=== PATIENT | female | born 1955 | race Caucasian/White ===

== ENCOUNTER 2016-07-03 08:17 | Inpatient (IN) | payer MEDICARE, MEDICAID ==
[2016-07-03] MEDS ORDERED: LORazepam 2 MG/ML DISP.SYRIN ONE ×2 (08:25→09:28)
--- OUTSIDE RECORDS SUMMARY | 2016-07-03 08:26 | XMS REPORT | Continuity of Care Document ---
:1955 Author Organization [facility] ([facility]) Address [address] [place] [address] Phone [phone] Care Team Providers Name Role Phone Will, Aditi Primary Care Provider [phone] Source Comments This disclosure is being made pursuant to the Care Everywhere program, applicable federal and state laws, and may not contain all informaitonavailable regarding this patient.[facility] ([facility]) Active Allergies and Adverse Reactions Allergen Noted Date Severity Reactions Comments Amitriptyline 09/06/2013 OTHER Pt states makes her "really goofy, like I'm on speed" Amoxicillin 09/06/2013 Upper Airway Includes any Edema,Anaphylactic antibiotic in the Shock penicillin family Blue Dye 09/06/2013 Nausea & Pt states she "passed Vomiting,Dizziness,OT out" HER Clonazepam 09/06/2013 OTHER Sleeps for approx. 48 hours straight Coffee (Coffea 06/20/2016 Urticaria (Hives) Arabica) Cotrim Double-Strength 09/06/2013 Rash Pt can only take sulfa for antibiotic and is treated prophylactic with antihistamine Duloxetine 09/06/2013 Urticaria (Hives) Exenatide 06/14/2016 OTHER Gabapentin 09/06/2013 OTHER Was affecting kidneys and liver Ibuprofen 09/06/2013 Urticaria Swollen tongue (Hives),OTHER Meperidine 06/14/2016 Urticaria (Hives) Metaxalone 09/06/2013 Nausea & Vomiting,Fever Metformin 09/06/2013 OTHER Was affecting kidneys and liver Milnacipran 09/06/2013 Urticaria (Hives) Morphine 09/06/2013 OTHER Pt states makes her "loopy" Naproxen 09/06/2013 Urticaria (Hives) Other Agent 09/18/2014 Angioedema Gadavist Penicillin 06/14/2016 Anaphylactic Shock Pioglitazone 09/06/2013 Urticaria Stomach cramps (Hives),OTHER Pramipexole 06/14/2016 Urticaria (Hives) Pregabalin 09/06/2013 Upper Airway Edema,Urticaria (Hives) Rosiglitazone 06/14/2016 Urticaria (Hives) Sulindac 06/14/2016 Urticaria (Hives) Valdecoxib 06/14/2016 Urticaria (Hives) Current Medications Prescription Sig. Disp. Refills Start End Status Date Date GENTAK 0.3 % Instill 1 Drop 08/16/19 Active ophthalmic solution onto both eyes 4 14 times daily as needed nitroglycerin 0.[address] 0.4 mg Active SL tablet under the tongue every 5 minutes as needed. melatonin 3 mg tablet Take 1 Tab (3 mg 30 Tab 09/27/19 Active total) by mouth 15 at bedtime HYDROcodone-acetaminop Take 1 tablet by 30 tablet 0 11/08/19 Active hen 10-325 mg per mouth every 8 15 tablet hours as needed insulin regular Inject 60 Units 15 mL 06/15/19 Active (HumuLIN R subcutaneously 3 17 CONCENTRATED) 500 times daily unit/mL (3 mL) before meals. injection pen oxyCODONE 5 mg Take 1-2 tablets 60 tablet 0 06/23/19 Active immediate release (5-10 mg total) 17 tablet by mouth every 4 hours as needed for Pain. docusate 100 mg Take 1 capsule 60 capsule 0 06/23/19 Active capsule (100 mg total) by 17 mouth 2 times daily. levETIRAcetam 500 mg Take 2 tablets 60 tablet 06/23/19 Active tablet (1,000 mg total) 17 by mouth 2 times daily. FLUOXETINE 40 mg Take 40 mg by 07/16/19 Discontinued capsule mouth 2 times 14 017 daily levothyroxine 100 mcg Take 100 mcg by Discontinued tablet mouth every 017 morning before breakfast. lisinopril 20 mg Take 0.5 Tabs (10 30 Tab 11 09/27/19 Discontinued tablet mg total) by 15 017 mouth daily levETIRAcetam 500 mg Take 1 Tab (500 30 Tab 09/27/19 Discontinued tablet mg total) by 15 017 mouth 2 times daily atorvastatin 40 mg Take 1 Tab (40 mg 30 Tab 5 09/27/19 Discontinued tablet total) by mouth 15 017 every evening hydrochlorothiazide Take 12.5 mg by Discontinued 12.5 mg tablet mouth daily 017 diphenhydrAMINE 25 mg Take 25-50 mg by Discontinued capsule mouth every 4 017 hours as needed acetaminophen 325 mg Take 650 mg by Discontinued tablet mouth every 4 017 hours as needed insulin glargine Inject 65 Units 10 mL 11 11/08/19 Discontinued (LANTUS) 100 unit/mL subcutaneously at 15 017 injection vial bedtime insulin lispro 64 to 70 units 66 mL 12/18/19 Discontinued (HumaLOG KWIKPEN) 100 premeal 3 times 16 017 unit/mL (3 mL) daily. Take up to injection pen 10 units at bed time for hyperglycemnia. Total daily dose up to 220 units SUPPLY ULTICARE 31 X 8 Inject 5 Doses 11/20/19 Discontinued MM pen needle subcutaneously 16 017 daily. GENTAK 0.3 % (3 mg/g) 06/10/19 Discontinued oint ophthalmic 17 017 ointment insulin aspart Inject Discontinued (NovoLOG FLEXPEN) 100 subcutaneously 3 017 unit/mL (3 mL) times daily injection pen before meals. levETIRAcetam 500 mg Take 1,000 mg by Discontinued tablet mouth 2 times 017 daily. Active Problems Problem Noted Date Acute cystitis 06/18/2016 Overview: Evaluated with ua, treated with cipro Intracranial hemorrhage 06/17/2016 Syncope and collapse 02/25/2015 After care 11/04/2014 Difficult airway for intubation 11/01/2014 Metacarpal bone fracture 10/06/2014 Morbid obesity 09/18/2014 Right-sided intracerebral hemorrhage 09/18/2014 Chronic pain syndrome 09/09/2013 Resolved Problems Problem Noted Date Resolved Date Intracranial hemorrhage on right side following injury 10/30/2014 11/07/2014 Overview: Repeat head CT. Neurosurgery consulted Tenderness over spine 10/30/2014 11/07/2014 Overview: T&L spine cleared radiologically. C-spine tender, placed in [place] j, CT negative for acute fracture. Claustrophobia 10/30/2014 11/07/2014 Head trauma 09/18/2014 11/07/2014 Most Recent Encounters Date Type Specialty Providers Description 06/22/2016 Office Visit Heart and Default, Other Subj: Appointment Vascular Raymond - Defo Scheduled Rod Hilton MD 06/20/2016 Hospital Encounter Heart and Mehul Lan, Chief Comp: Patient Vascular MD Reported Reason For Sigurdsson, Visit MD Isabel 06/18/2016 Hospital Encounter Neurology Mehul Lan, Subj: Appointment MD Scheduled 06/17/2016 Hospital Encounter Neurology Gabriella Dwyer MD Subj: Appointment Scheduled 06/17/2016 - Hospital Encounter General Care Sebastian Segovia, Dx: Syncope and 06/22/2016 Inpatient - Adult MD collapse (Primary Palak Liz, Dx) Rolly Huston MD 06/14/2016 Office Visit Diabetes Services Amy Pedersen MD Dx: Uncontrolled diabetes mellitus type 2 without complications, unspecified usp insulin use status (Primary Dx) Social History Tobacco Use Types Packs/Day Years Used Date Never Smoker Smokeless Tobacco: Never Used Tobacco Cessation:Counseling Given: Yes Comments: Alcohol Use Drinks/Week oz/Week Comments No Last Filed Vital Signs Vital Sign Reading Time Taken Blood Pressure 133/63 06/22/2016 12:15 PM CDT Pulse 100 06/22/2016 12:15 PM CDT Temperature 36.7 C (98.1 F) 06/22/2016 12:15 PM CDT Respiratory Rate 17 06/19/2016 5:36 AM CDT Height 1.518 m (4' 11.75") 06/20/2016 2:34 PM CDT Weight 92.2 kg (203 lb 4.2 oz) 06/20/2016 2:34 PM CDT Body Mass Index 40.01 06/20/2016 2:34 PM CDT Oxygen Saturation 96% 06/22/2016 12:15 PM CDT Plan of Care Date Type Specialty Providers Description 07/06/2016 Wait List Neurology 07/06/2016 Appointment Neurology Efrain Araujo MD Subj: Upcoming Appt [address] [place] [id number] [phone] (Fax) 08/05/2016 Appointment Radiology Subj: Appointment Scheduled 08/05/2016 Appointment Neurosurgery Den Mohan III, MD [address] [place] [address] [phone] (Fax) Subj: Appointment Raymon Huynh MD [address] [place] [address] [phone] (Fax) Scheduled Health Maintenance Due Date Last Done Comments HCV Screening 1955 Hepatitis B Vaccine (1 of 3 - 1955 Primary Series) Tdap Vaccine 1965 DIABETIC: Microalbumin 1972 Td Vaccine 1972 Pneumococcal Vaccine (1 of 1 1973 - PPSV23) Cervical Cancer Screening 1984 Mammogram 1994 Colonoscopy 11/26/2004 Zoster Vaccine 2014 DIABETIC: Cholesterol 09/26/2015 09/25/2014 Diabetic: Hdl 09/26/2015 09/25/2014 Diabetic: Ldl 09/26/2015 09/25/2014 DIABETIC: Triglycerides 09/26/2015 09/25/2014 DIABETIC: Foot Exam 12/18/2015 DIABETIC: Retinal Eye Exam 12/18/2015 [facility] Annual Coding Paraplegia 02/28/2016 Influenza Vaccine: Seasonal 09/27/2016 (Season Ended) DIABETIC: Hemoglobin A1C 12/14/2016 06/14/2016, 12/18/2015, 10/31/2014 [facility] Annual Coding Diabetes 02/27/2017 06/14/2016, Additional history exists without Complication 12/18/2015, 12/18/2015 Results from Last 3 Months PLATELET COUNT (06/22/2016 12:14 PM) Component Value Range Platelet Count 306 150-400 K/MM3 Specimen Whole Blood BLOOD GLUCOSE, BEDSIDE (06/22/2016 11:47 AM)Only the most recent of21 resultswithin the time period is included. Component Value Range Glucose, Accu-Chek 216(H) 65-99 mg/dL Specimen Blood, capillary HEPATIC FUNCTION PANEL (06/20/2016 6:29 PM) Component Value Range Albumin 4.1 3.4-4.8 g/dL ALP 110(H) 35-104 U/L Bilirubin Total 0.4 <=1.2 mg/dL Bilirubin, Direct <0.2 0.0-0.2 mg/dL AST 23Comment: 0-32 U/L Adult reference ranges updated on 01/22/13 at 830am ALT 19Comment: 0-33 U/L The upper limit of normal for alanine aminotransferase (ALT) reference ranges for adults is controversial with some authorities recommending limit as low as 30 U/L for males and 19 U/L for females. Th ere is increased incidence of subclinical liver disease (e.g., early steatohepatitis) in patients with ALT values in the range of 31-41 U/L for males and 20-33 U/L for females. ALT values should alway s be interpreted in conjunction with clinical history, physical examination findings, and, if applicable, data from other diagnostic tests. Total Protein 7.3 6.0-8.0 g/dL Specimen Blood ECHO ADULT - ECHOCARDIOGRAM, TRANSTHORACIC (06/20/2016 2:33 PM) Component Value Range Interpretation Summary TRANSTHORACIC ECHOCARDIOGRAM Technically difficult apical views. especially apical No evidence of obstruction in LV outflow tract or across aortic valve Normal left ventricular systolic function. LV Ejection Fraction=61% (based on Biplane Method of Discs). Normal wall motion Left ventricular hypertrophy. Patient Height (cm) 152 cm Patient Weight (kg) 92 kg Systolic Pressure (mmHg) 132 mmHg Diastolic Pressure (mmHg) 118 mmHg BSA (meters^2) 1.9 m^2 Left Ventricle (LV) Normal left ventricular size. Left ventricular hypertrophy. Normal left ventricular systolic function. LV Ejection Fraction=61% (based on Biplane Method of Discs). Normal left ventricular wall motion Right Ventricle (RV) Visualization of the RV chamber is inadequate Probably normal right ventricular systolic function. Left and Right Atria (LA, RA) Normal LA size based on 2D linear dimensions. Visualization of the RA chamber is limited Mitral Valve (MV) Normal mitral valve leaflet morphology No systolic anterior motion of the mitral valve. No mitral regurgitation Tricuspid Valve (TV) Normal tricuspid valve morphology Trace Tricuspid regurgitation Aortic Valve (AoV) The aortic valve structure is probably trileaflet - not all coronary cusps are visualized. No aortic regurgitation by color Doppler. No hemodynamically significant valvular aortic stenosis by doppler Pulmonic Valve (PV) Normal pulmonic valve No pulmonic valve stenosis by doppler No pulmonic valvular regurgitation by doppler Aorta and Pulmonary Artery (Ao, PA) The aortic root is normal size. Pericardium/Pleura There is no pericardial effusion. Procedures Complete 2D with Doppler, Color Flow and image documentation ([id number]) Inf. Vena Cava (IVC) / Pulm. Veins The IVC size appears normal (Visual estimate). IVSd 1.3 cm LVIDd 3.8 cm LVIDs 2.3 cm LVPWd 1.3 cm IVS/LVPW 1.0 Ao root diam 2.8 cm Ao root area 6.1 cm^2 LA dimension 2.9 cm LA/Ao 1.0 LVAd ap4 23.0 cm^2 EF(MOD-sp4) 60.9 % MV E max titi 69.6 cm/sec MV A max titi 67.6 cm/sec MV E/A 1.0 MV dec time 0.27 sec Ao V2 max 118.2 cm/sec Ao max PG 5.6 mmHg PA V2 max 113.4 cm/sec PA max PG 5.1 mmHg Low Range of LVEF 61 High Range of LVEF 61 Reason For Study Syncope Policewoman Rod Rosario Interpreting Physician Rock Valiente MD electronically signed on 2016-06-20 15:54:27.967 DIFFERENTIAL (06/20/2016 8:44 AM)Only the most recent of2 resultswithin the time period is included. Component Value Range % Neutrophils-Auto Diff 62.0 % Neutrophils-Auto Diff 5490 1329-4191 /MM3 % Lymphocytes-Auto Diff 26.9 % Lymphocytes-Auto Diff 2380 875-3300 /MM3 % Monocytes-Auto Diff 6.6 % Monocytes-Auto Diff 580 130-860 /MM3 % Eosinophils-Auto Diff 4.0 % Eosinophils-Auto Diff 350 40-390 /MM3 % Basophils 0.2 % Basophils-Auto Diff 20 10-136 /MM3 % Immature Granulocytes-Auto Diff 0.3 % Immature Granulocytes-Auto Diff 30 /MM3 Specimen Whole Blood CBC (COMPLETE BLOOD COUNT) (06/20/2016 8:44 AM)Only the most recent of2 resultswithin the time period is included. Component Value Range WBC Count 8.9 3.7-10.5 K/MM3 RBC Count 4.18 4.00-5.20 M/MM3 Hemoglobin 12.5 11.9-15.5 g/dL Hematocrit 36 35-47 % MCV (Mean Corpuscular Volume) 86 82-99 FL MCH (Mean Corpuscular Hemoglobin) 30 25-35 PG MCHC (Mean Corpuscular Hemoglobin Concentration) 35 32-36 % Platelet Count 282 150-400 K/MM3 MPV (Mean Platelet Volume) 8.8(L) 9.4-12.3 FL RBC Dist Width-STD 37.8 36.4-46.3 FL RBC Distrib Width 12.0 9.0-14.5 % Nucleated RBC 0 /100 WBC Specimen Whole Blood TOTAL PROTEIN (06/20/2016 8:44 AM) Component Value Range Total Protein 6.3 6.0-8.0 g/dL Specimen Blood SERUM PROTEIN ELECTROPHORESIS (06/20/2016 8:44 AM) Component Value Range SPEP-Total Protein 6.3 6.0-8.0 g/dL SPEP-Albumin 3.5(L) 3.7-5.0 g/dL SPEP-Alpha1 Fraction 0.3 0.3-0.5 g/dL SPEP-Alpha2 Fraction 1.0(H) 0.4-0.6 g/dL SPEP-Beta1 Fraction 0.5 g/dL SPEP-Beta2 Fraction 0.3 g/dL SPEP-Beta Fraction Total 0.8 0.6-0.9 g/dL SPEP-Gamma Fraction 0.7 0.5-1.3 g/dL SPEP-Monoclonal Protein 0.0 g/dL SPEP-Path Interp See TextComment: A monoclonal protein is not identified by serum protein electrophoresis. The alpha 2 fraction is elevated and may represent increased acute phase reactants. Alejandra Reyes M.D., R3 Pathology Resident I have personally reviewed the patient studies and I agree with the above report. Den Aceves M.D, Ph.D., Decorative Cutting Machine Tender, Clinical Chemistry Laboratory, [facility] Questions can be directed to the Pathology Chemistry resident (pager #[phone]) Specimen Blood SERUM IMMUNOFIXATION ELECTROPHORESIS (06/20/2016 8:44 AM) Component Value Range SIFE-Monoclonal 1 None None SIFE-Path Interp See TextComment: Immunotyping electrophoresis shows no monoclonal immunoglobulins. Alejandra Reyes M.D., R3 Pathology Resident I have personally reviewed the patient studies and I agree with the above report. Den Aceves M.D, Ph.D., Decorative Cutting Machine Tender, Clinical Chemistry Laboratory, [facility] Specimen Blood [place]PA[place] QUANT FREE LIGHT CHAIN RATIO, BLOOD (06/20/2016 8:44 AM) Component Value Range [place] Free Light Chain, Blood, Quant 17.00 3.30-19.40 mg/L Lambda Free Light Chain, Blood, Quant 14.10 5.70-26.30 mg/L [place]/Lambda Ratio, Blood 1.21 0.26-1.65 Specimen Blood MAGNESIUM (06/20/2016 8:44 AM) Component Value Range Magnesium 1.9 1.5-2.9 mg/dL Specimen Blood BASIC METABOLIC PANEL W/ CALCIUM (CHEM 8) (06/20/2016 8:44 AM)Only the most recent of3 resultswithin the time period is included. Component Value Range Sodium 139 135-145 mEq/L Potassium 3.8 3.5-5.0 mEq/L Chloride 102 95-107 mEq/L CO2 25 22-29 mEq/L BUN 9(L) 10-20 mg/dL Creatinine 0.6Comment: 0.5-1.0 mg/dL Creatinine switched to enzymatic method on 07/06/2010.GFR equation switched to IDMS-traceable MDRD equation on 07/06/2010. Calculated GFR values are not valid in clinical settings where serum creatinine is changing. Glucose 196(H)Comment: 65-99 mg/dL The Expert Committee on the Diagnosis and Classification of Diabetes has defined impaired fasting glucose as greater than or equal to 100 mg/dL but less than 126 mg/dL.(Diabetes Care 28 (Suppl 1)S41,2005) Calcium 9.1 8.5-10.5 mg/dL Anion Gap 12 mEq/L Calculated GFR >90 >60 mL/min/1.73 m2 Specimen Blood CBC WITH DIFFERENTIAL (06/20/2016 8:44 AM)Only the most recent of2 resultswithin the time period is included. Specimen Whole Blood Narrative The following orders were created for panel order CBC WITH DIFFERENTIAL. Procedure Abnormality Status --------- ------ CBC (COMPLETE BLOOD COUNT)[[id number]] AbnormalFinal result DIFFERENTIAL[[id number]] Final result Please view results for these tests on the individual orders. THYROXINE (06/20/2016 8:44 AM) Component Value Range T4, Total 8.28 4.60-12.00 g/dL Specimen Blood THYROID STIMULATING HORMONE (06/20/2016 8:44 AM) Component Value Range TSH 3.50 0.27-4.20 IU/mL Specimen Blood CORTISOL, PLASMA (06/20/2016 8:44 AM) Component Value Range Cortisol, Plasma 11.7Comment: g/dL New assay ([employer] Cortisol II) introduced 04/05/2016. Reference ranges: AM (6-10):6.0 - 18.4 g/dL PM (3-5): 2.7 - 10.5 g/dL Timing of sample collection must be taken into account when interpreting results due to cortisol secretion circadian rhythms. Cortisol assay has no cross-reactivity with dexamethasone and low cross- reactivity with prednisone, prednisolone, and 6-methylprednisolone.Patients treated with prednisone, prednisolone, and 6-me thylprednisolone (especially higher doses) may show falsely elevated concentrations of cortisol.Patients with 21-hydroxylase deficiency may have elevated 21-deoxycortisol levels that can give rise to falsely elevated cortisol results.See Laboratory Handbook for more details. ([email or web address]) Specimen Blood ECG - EKG 12 LEAD (06/19/2016 2:45 PM) Component Value Range ECG SEVERITY - NORMAL ECG - VENT. RATE 83 bpm RR 723 ms P-R INTERVAL 168 ms QRSD INTERVAL 82 ms QT INTERVAL 396 ms QTC INTERVAL 466 ms P AXIS 25 degrees QRS AXIS 34 degrees T WAVE AXIS 38 degrees REPORT SINUS RHYTHM LOW VOLTAGE IN FRONTAL LEADS AND PROLONGED QTc ARE NO LONGER PRESENT. Otherwise no significant change Interpreting Physician: MEHRDAD CALABRESE MD MICROSCOPIC URINALYSIS (06/19/2016 12:03 AM) Component Value Range White Blood Cells, Urine 97(H) 0-5 /HPF Red Blood Cells, Urine 9(H) 0-2 /HPF Bacteria, Urine Moderate(A) /HPF Squamous Epithelial Cells, Urine 167(H) <=10 /LPF Transitional Epithelial Cells, Urine 3 <=10 /LPF Mucous-Urine Rare None, Rare Specimen Urine URINALYSIS WITH REFLEX CULTURE (06/19/2016 12:03 AM) Component Value Range Color, Urine Yellow Straw, Pale Yellow, Yellow, Clear, None Clarity, Urine Cloudy(A) Clear pH, Urine 5.0 <9.0 Spec [place], Urine 1.015 1.000-1.030 Glucose, Urine 2+(A) Negative Blood, Urine 1+(A) Negative Ketones, Urine Negative Negative Protein, Urine Negative Negative Urobilinogen, Urine Normal Normal Bilirubin, Urine Negative Negative Leukocyte Esterase, Urine 3+(A) Negative Nitrite, Urine Negative Negative Specimen Urine URINALYSIS WITH REFLEXED CULTURE AND MICROSCOPIC EXAM (06/19/2016 12:03 AM) Specimen Culture - Urine, Straight cath specimen Narrative The following orders were created for panel order URINALYSIS WITH REFLEXED CULTURE AND MICROSCOPIC EXAM. Procedure Abnormality Status --------- ------ URINALYSIS WITH REFLEX C...[[id number]]AbnormalFinal result MICROSCOPIC URINALYSIS[[id number]] Abnormal Final result URINE CULTURE, REFLEXED[[id number]]Abnormal Final result Please view results for these tests on the individual orders. URINE CULTURE, REFLEXED (06/19/2016 12:03 AM) Component Value Range Quantitative Culture >10,000 CFU/mL Mixed Christine (Urogenital) suggesting an improperly collected specimen(A) Specimen Culture - Urine, Straight cath specimen Narrative Identification performed by MALDI-TOF mass spectrometry (MS).The performance characteristics of MALDI-TOF MS were determined by the [facility].It has not been cleared orApproved by the FDA. The FDA has determined that such clearance or approval is not necessary.This test is for clinical purposes. It should not be regarded as investigational or for research.The laboratory is certified under the Clinical Laboratory Improvement Amendments of 1988 (CLIA) as qualified to perform high complexity clinical laboratory testing. EEG - CONTINUOUS BEDSIDE EEG MONITORING (06/17/2016 10:17 PM) Mehul Rueda MD 06/17/2016 10:17 PM Department of Neurology Division of Neurophysiology EEG Lab Continuous Bedside EEG Monitoring (CBEM) with Video Identifying Information: Patient Name:MIRIAM HAN Age and sex:60 y.o. female Requesting Provider: Hong Ramires MD Reason for the Request: R/o seizure History: 60-year-old female with a history of cerebral amyloid and blackout spells of unknown nature with an incomplete workup. She presented with headaches x1 week after falling. She also has neck pain and back pain. A CAT scan demonstrated intraparenchymal hemorrhage. Interpretation: Day 0: dates/times reviewed: From 21:32 PM on 06/17/2016 to 22:12 PM on 06/17/2016 Clinical State: Awake and asleep Electrographic Findings: Background: The posterior dominant rhythm is 6.5 Hz at 30 uV. The general background shows diffuse theta slow wave frequencies. Interictal Discharges: Intermittent bursts of GRDA (Generalized Rhythmic Delta Activity) are noted. Ictal Discharges: None Reactive EEG change: Present Clinical Events (video): None Description: The posterior dominant rhythm is 6.5 Hz at 30 uV. The general background shows diffuse theta slow wave frequencies. Intermittent bursts of GRDA (Generalized Rhythmic Delta Activity) are noted. Impression: Abnormal EEG for the awake and asleep states showing diffuse slow waves in the general background. Clinical Correlation: Findings show encephalopathy. Findings reported to Dr. Hong Ramires MD of the Neurosurgery Service (pager [phone]).Recording continues. Staff Involved Staff Only Mehul Lan MD Neurology Staff Electronically signed CT BRAIN WO CONTRAST ([id number]) (06/17/2016 8:15 PM)Only the most recent of2 resultswithin the time period is included. Impressions Impression: 1. Stable left frontoparietal and right frontal intraparenchymal hematomas, subarachnoid, and posterior parafalcine subdural blood products. No evidence of new hemorrhage. 2. Right parietal encephalomalacia and right occipital gyriform calcification are chronic findings. This final report is in agreement with the critical and emergent preliminary findings reported by the vice president integrated marketing operations coordinator. Narrative Procedure: CT BRAIN WO CONTRAST ([id number]) Indication: Follow-up intracranial hemorrhage Technique: Axial CT of the brain without IV contrast. Sagittal and coronal reformations are also provided for review. Comparison: CT brain dated today at 1345. Findings: Hemorrhagic contusions in the anterior right frontal lobe and the paramedian left frontoparietal lobes appear grossly similar. High-density, gyriform outlining in the right occipital lobe is chronic calcification.Stable encephalomalacia of the superior right parietal lobe. Scattered subarachnoid blood products. Thin subdural hematoma along the posterior falx appears stable. No new area of hemorrhage. No appreciable midline shift or hydrocephalus. The basal cisterns are symmetric. No evidence of acute, large vascular distribution infarction. Normal brainstem and posterior fossa. No calvarial fracture. Procedure Note Ángel, Incoming Imaging Results - Sat Jun 18, 2016 9:03 AM CDT Procedure: CT BRAIN WO CONTRAST ([id number]) Indication: Follow-up intracranial hemorrhage Technique: Axial CT of the brain without IV contrast. Sagittal and coronal reformations are also provided for review. Comparison: CT brain dated today at 1345. Findings: Hemorrhagic contusions in the anterior right frontal lobe and the paramedian left frontoparietal lobes appear grossly similar. High-density, gyriform outlining in the right occipital lobe is chronic calcification. Stable encephalomalacia of the superior right parietal lobe. Scattered subarachnoid blood products. Thin subdural hematoma along the posterior falx appears stable. No new area of hemorrhage. No appreciable midline shift or hydrocephalus. The basal cisterns are symmetric. No evidence of acute, large vascular distribution infarction. Normal brainstem and posterior fossa. No calvarial fracture. IMPRESSION Impression: 1. Stable left frontoparietal and right frontal intraparenchymal hematomas, subarachnoid, and posterior parafalcine subdural blood products. No evidence of new hemorrhage. 2. Right parietal encephalomalacia and right occipital gyriform calcification are chronic findings. This final report is in agreement with the critical and emergent preliminary findings reported by the vice president integrated marketing operations coordinator. URINE MICROSCOPIC (06/17/2016 8:11 PM) Component Value Range White Blood Cells, Urine 157(H) 0-5 /HPF Red Blood Cells, Urine 4(H) 0-2 /HPF Bacteria, Urine Many(A) /HPF Squamous Epithelial Cells, Urine 70(H) <=10 /LPF Mucous-Urine Moderate(A) None, Rare Specimen Urine URINALYSIS (06/17/2016 8:11 PM) Component Value Range Color, Urine Yellow Straw, Pale Yellow, Yellow, Clear, None Clarity, Urine Cloudy(A) Clear pH, Urine 5.0 <9.0 Glucose, Urine 2+(A) Negative Blood, Urine 1+(A) Negative Ketones, Urine 1+(A) Negative Protein, Urine Negative Negative Urobilinogen, Urine Normal Normal Bilirubin, Urine Negative Negative Leukocyte Esterase, Urine 3+(A) Negative Nitrite, Urine Negative Negative Spec [place], Urine 1.020 1.000-1.030 Specimen Urine T SPINE AP& LATERAL (06/17/2016 3:03 PM) Impressions Findings/impression: Thoracic spine: Evaluation of upper thoracic spine is limited due to overlapping shadows. Normal alignment. No definite evidence of acute displaced fractures of dislocations. Preserved with vertebral body heights and intervertebral disc spaces. Lumbar spine: 5 lumbar type vertebrae. No definite acute fractures or dislocations. Preserved vertebral body heights and intervertebral disc spaces. Bilateral L5-S1 facet arthropathy. Narrative Procedures: L SPINE AP & LATERAL, T SPINE AP & LATERAL Indication: Trauma Technique: AP and lateral views of the lumbar spine Comparison: None Procedure Note Ángel, Incoming Imaging Results - MonJun 17, 2016 4:15 PM CDT Procedures: L SPINE AP & LATERAL, T SPINE AP & LATERAL Indication: Trauma Technique: AP and lateral views of the lumbar spine Comparison: None IMPRESSION Findings/impression: Thoracic spine: Evaluation of upper thoracic spine is limited due to overlapping shadows. Normal alignment. No definite evidence of acute displaced fractures of dislocations. Preserved with vertebral body heights and intervertebral disc spaces. Lumbar spine: 5 lumbar type vertebrae. No definite acute fractures or dislocations. Preserved vertebral body heights and intervertebral disc spaces. Bilateral L5-S1 facet arthropathy. L SPINE AP& LATERAL (06/17/2016 3:03 PM) Impressions Findings/impression: Thoracic spine: Evaluation of upper thoracic spine is limited due to overlapping shadows. Normal alignment. No definite evidence of acute displaced fractures of dislocations. Preserved with vertebral body heights and intervertebral disc spaces. Lumbar spine: 5 lumbar type vertebrae. No definite acute fractures or dislocations. Preserved vertebral body heights and intervertebral disc spaces. Bilateral L5-S1 facet arthropathy. Narrative Procedures: L SPINE AP & LATERAL, T SPINE AP & LATERAL Indication: Trauma Technique: AP and lateral views of the lumbar spine Comparison: None Procedure Note Ángel, Incoming Imaging Results - MonJun 17, 2016 4:15 PM CDT Procedures: L SPINE AP & LATERAL, T SPINE AP & LATERAL Indication: Trauma Technique: AP and lateral views of the lumbar spine Comparison: None IMPRESSION Findings/impression: Thoracic spine: Evaluation of upper thoracic spine is limited due to overlapping shadows. Normal alignment. No definite evidence of acute displaced fractures of dislocations. Preserved with vertebral body heights and intervertebral disc spaces. Lumbar spine: 5 lumbar type vertebrae. No definite acute fractures or dislocations. Preserved vertebral body heights and intervertebral disc spaces. Bilateral L5-S1 facet arthropathy. PTT (PARTIAL THROMBOPLASTIN TIME) (06/17/2016 2:14 PM) Component Value Range PTT 23 22-31 secs Specimen Blood PT/INR (PROTHROMBIN TIME/INR) VENOUS (06/17/2016 2:14 PM) Component Value Range PT (Prothrombin Time) 10 9-12 secs INR 1.0 <4.0 Specimen Blood CBC (COMPLETE BLOOD COUNT) (06/17/2016 2:14 PM) Component Value Range WBC Count 11.0(H) 3.7-10.5 K/MM3 RBC Count 4.16 4.00-5.20 M/MM3 Hemoglobin 12.4 11.9-15.5 g/dL Hematocrit 36 35-47 % MCV (Mean Corpuscular Volume) 87 82-99 FL MCH (Mean Corpuscular Hemoglobin) 30 25-35 PG MCHC (Mean Corpuscular Hemoglobin Concentration) 34 32-36 % Platelet Count 306 150-400 K/MM3 MPV (Mean Platelet Volume) 8.6(L) 9.4-12.3 FL RBC Dist Width-STD 38.3 36.4-46.3 FL RBC Distrib Width 12.0 9.0-14.5 % Nucleated RBC 0 /[address] WBC Specimen Whole Blood [address] CERVICAL SPINE WO INCL T-3 ([id number]) (06/17/2016 1:55 PM) Impressions Impression: 1. No evidence of acute fractures or dislocations along the cervical spine. Narrative Procedure: CT CERVICAL SPINE WO INCL T-3 ([id number]) Indication: Trauma Technique: Axial CT of the cervical spine without IV contrast. Sagittal and coronal reformations are also provided for review. Comparison: CT 10/30/2014 Findings: The spine is visualized from the skull base through T3. There is loss of the normal cervical lordosis, otherwise alignment is grossly within normal limits. There is no evidence of acute fracture or dislocation. Craniovertebral junction relationships are well maintained.Vertebral body heights are within normal limits. Multilevel degenerative changes of the spine are seen with posterior disc osteophyte complexes at the level of C5-6 and C6-7 Prevertebral soft tissues are unremarkable. Visualized upper thoracic spine and lung apices are clear.Grossly normal thyroid. Procedure Note Ángel, Incoming Imaging Results - MonJun 17, 2016 2:48 PM CDT Procedure: CT CERVICAL SPINE WO INCL T-3 ([id number]) Indication: Trauma Technique: Axial CT of the cervical spine without IV contrast. Sagittal and coronal reformations are also provided for review. Comparison: CT 10/30/2014 Findings: The spine is visualized from the skull base through T3. There is loss of the normal cervical lordosis, otherwise alignment is grossly within normal limits. There is no evidence of acute fracture or dislocation. Craniovertebral junction relationships are well maintained. Vertebral body heights are within normal limits. Multilevel degenerative changes of the spine are seen with posterior disc osteophyte complexes at the level of C5-6 and C6-7 Prevertebral soft tissues are unremarkable. Visualized upper thoracic spine and lung apices are clear. Grossly normal thyroid. IMPRESSION Impression: 1. No evidence of acute fractures or dislocations along the cervical spine. HEMOGLOBIN A1C, POINT OF CARE (06/14/2016) Component Value Range POC HEMOGLOBIN AIC 10.8(A) 4.8-6.0 % Hemoglobin A1C, POC Lot# [id number]
[2016-07-03] MEDS ORDERED: LORazepam 2 MG/ML DISP.SYRIN IV ONE ×3 (08:33→10:06)
[2016-07-03 09:12] LABS: Hematocrit 38.7 % (37.0-47.0); Hemoglobin 13.4 gm/dL (12.5-16.0); Mean Cell Volume 86.2 fl (78-100); Mean Corpuscular Hemoglobin 29.8 pg (27-31); Mean Corpuscular Hgb Conc 34.6 g/dl (32-36); Mean Platelet Volume 8.3 fl (6.0-9.5); Neutrophil # 17.9 K/mm3 (1.3-6.0); Neutrophil % 92.2 % (42-75.0); Platelet Count 284 K/mm3 (150-450); Red Blood Count 4.49 M/mm3 (4.2-5.4); Red Cell Distribution Width 11.7 % (11.5-14.0); White Blood Count 19.4 K/mm3 (4.0-10.5)
[2016-07-03 09:20] LABS: Prothrombin Time (Patient) 10.6 Seconds (9.4-11.4)
[2016-07-03 09:24] LABS: Urine Bilirubin Negative (NEGATIVE); Urine Blood Negative /ul (NEGATIVE); Urine Ketone Negative (NEGATIVE); Urine Nitrite Negative (NEGATIVE); Urine Protein Negative (NEGATIVE); Urine Specific Gravity 1.025 SP.GR. (1.005-1.010); Urine Urobilinogen Normal (NORMAL)
[2016-07-03 09:25] LABS: INR 1.02 INR (0.90-1.10)
--- OUTSIDE RECORDS SUMMARY | 2016-07-03 09:27 | XMS REPORT | Continuity of Care Document ---
:1955 Author Organization [facility] ([facility]) Address [address] [place] [address] Phone [phone] Care Team Providers Name Role Phone Will, Aditi Primary Care Provider [phone] Source Comments This disclosure is being made pursuant to the Care Everywhere program, applicable federal and state laws, and may not contain all informaitonavailable regarding this patient.[facility] ([facility]) Active Allergies and Adverse Reactions Allergen Noted [...] spine cleared radiologically. C-spine tender, placed in ho-chunk j, CT negative for acute fracture. Claustrophobia [...] diabetes mellitus type 2 without complications, unspecified assisted insulin use status (Primary Dx) Social History [...] Neurology Efrain Araujo MD Subj: Upcoming Appt [address] [place] [phone] (Fax) 08/05/2016 Appointment Radiology Subj: Appointment Scheduled 08/05/2016 Appointment Neurosurgery Den Mohan III, MD [address] [place] [address] [phone] (Fax) Subj: Appointment Raymon Huynh MD [address] [place] [address] [phone] (Fax) Scheduled Health Maintenance Due Date Last [...] Exam 12/18/2015 DIABETIC: Retinal Eye Exam 12/18/2015 [facility] Annual Coding Paraplegia 02/28/2016 Influenza Vaccine: Seasonal 09/27/2016 (Season Ended) DIABETIC: Hemoglobin A1C 12/14/2016 06/14/2016, 12/18/2015, 10/31/2014 [facility] Annual Coding Diabetes 02/27/2017 06/14/2016, Additional history [...] with Doppler, Color Flow and image documentation ([id number]) Inf. Vena Cava (IVC) / Pulm. Veins [...] of LVEF 61 Reason For Study Syncope Coating Machine Operator Rod Rosario Interpreting Physician Rock Valiente MD electronically signed on 2016-06-20 15:54:27.967 DIFFERENTIAL (06/20/2016 8:44 AM)Only the most recent of2 resultswithin the time period is included. Component Value Range % Neutrophils-Auto Diff 62.0 % Neutrophils-Auto Diff 5490 5800-1572 /MM3 % Lymphocytes-Auto Diff 26.9 % Lymphocytes-Auto [...] the above report. Den Aceves M.D, Ph.D., Assembly Riveter, Clinical Chemistry Laboratory, [facility] Questions can be directed to the Pathology Chemistry resident (pager #[phone]) Specimen Blood SERUM IMMUNOFIXATION ELECTROPHORESIS (06/20/2016 8:44 AM) Component Value Range SIFE-Monoclonal 1 None None SIFE-Path Interp See TextComment: Immunotyping electrophoresis shows no monoclonal immunoglobulins. Alejandra Reyes M.D., R3 Pathology Resident I have personally reviewed the patient studies and I agree with the above report. Den Aceves M.D, Ph.D., Assembly Riveter, Clinical Chemistry Laboratory, [facility] Specimen Blood K[place]PA[place]AMBDA QUANT FREE LIGHT CHAIN RATIO, BLOOD (06/20/2016 8:44 AM) Component Value Range [place] Free Light Chain, Blood, Quant 17.00 3.30-19.40 mg/L Lambda Free Light Chain, Blood, Quant 14.10 5.70-26.30 mg/L [place]/Lambda Ratio, Blood 1.21 0.26-1.65 Specimen Blood MAGNESIUM [...] Abnormality Status --------- ------ CBC (COMPLETE BLOOD COUNT)[[id number]] AbnormalFinal result DIFFERENTIAL[[id number]] Final result Please view results for these [...] cortisol results.See Laboratory Handbook for more details. ([email or web address]) Specimen Blood ECG - EKG 12 [...] Cloudy(A) Clear pH, Urine 5.0 <9.0 Spec [place], Urine 1.015 1.000-1.030 Glucose, Urine 2+(A) Negative [...] Abnormality Status --------- ------ URINALYSIS WITH REFLEX C...[[id number]]AbnormalFinal result MICROSCOPIC URINALYSIS[[id number]] Abnormal Final result URINE CULTURE, REFLEXED[[id number]]Abnormal Final result Please view results for these tests on the individual orders. URINE CULTURE, REFLEXED (06/19/2016 12:03 AM) Component Value Range Quantitative Culture >10,000 CFU/mL Mixed Christine (Urogenital) suggesting an improperly collected specimen(A) Specimen Culture - Urine, Straight cath specimen Narrative Identification performed by MALDI-TOF mass spectrometry (MS).The performance characteristics of MALDI-TOF MS were determined by the [facility].It has not been cleared orApproved by [...] Ramires MD of the Neurosurgery Service (pager [phone]).Recording continues. Staff Involved Staff Only Mehul Lan MD Neurology Staff Electronically signed CT BRAIN WO CONTRAST ([id number]) (06/17/2016 8:15 PM)Only the most recent of2 [...] and emergent preliminary findings reported by the residential insurance inspector radio division captain. Narrative Procedure: CT BRAIN WO CONTRAST ([id number]) Indication: Follow-up intracranial hemorrhage Technique: Axial CT [...] AM CDT Procedure: CT BRAIN WO CONTRAST ([id number]) Indication: Follow-up intracranial hemorrhage Technique: Axial CT [...] and emergent preliminary findings reported by the residential insurance inspector radio division captain. URINE MICROSCOPIC (06/17/2016 8:11 PM) Component Value [...] 3+(A) Negative Nitrite, Urine Negative Negative Spec [place], Urine 1.020 1.000-1.030 Specimen Urine T SPINE [...] Blood CT CERVICAL SPINE WO INCL T-3 ([id number]) (06/17/2016 1:55 PM) Impressions Impression: 1. No evidence of acute fractures or dislocations along the cervical spine. Narrative Procedure: CT CERVICAL SPINE WO INCL T-3 ([id number]) Indication: Trauma Technique: Axial CT of the [...] Procedure: CT CERVICAL SPINE WO INCL T-3 ([id number]) Indication: Trauma Technique: Axial CT of the [...] 10.8(A) 4.8-6.0 % Hemoglobin A1C, POC Lot# [id number]
[2016-07-03 09:28] LABS: ALT 27 U/L (19-67); AST 22 U/L (0-48); Albumin * 3.6 gm/dl (3.4-5.0); Alkaline Phosphatase * 107 U/L (50-170); Anion Gap 15.6 mmol/L (6.8-13.8); BUN/Creatinine Ratio 18.8 (9.0-21.6); Bilirubin, Total 0.3 mg/dL (0.0-1.1); Blood Urea Nitrogen 12 mg/dL (3-23); Ca. Corrected For Albumin 9.2 mg/dL (8.4-10.2); Calcium * 9.2 mg/dL (7.9-10.9); Carbon Dioxide 28.3 mmol/L (24-32.6); Chloride 104 mmol/L (97-106); Glucose * 94 mg/dL (70-110); Potassium 3.9 mmol/L (3.4-4.6); Sodium 144 mmol/L (132-142); Total Protein 7.5 gm/dL (6.2-8.2); Troponin I Less than 0.017 ng/ml (0.00-0.10)
[2016-07-03 09:33] LABS: Urine Appearance Clear; Urine Color Yellow
[2016-07-03 09:34] LABS: Urine Bacteria TRACE; Urine RBC None Seen /hpf (0-5); Urine WBC 0-5 /hpf (0-5)
--- NOTE | 2016-07-03 09:34 | ERNOTE ---
Neuro HPI ER Record Date of Service: 07/03/16 Presenting Symptoms: confusion Time Seen by Provider: 07/03/16 08:22 Source: family, EMS Exam Limitations: clinical condition Immunizations: IMMUNIZATION HX Immunizations Up to Date Yes Allergies/Adverse Reactions: Allergies Allergy/AdvReac Type Severity Reaction Status Date / Time amitriptyline Allergy Verified 07/03/16 08:48 amoxicillin Allergy Verified 07/03/16 08:48 blue dye Allergy Verified 07/03/16 08:48 clonazepam [From Klonopin] Allergy Verified 07/03/16 08:48 coffee (Coffea arabica) Allergy Verified 07/03/16 08:48 duloxetine Allergy Verified 07/03/16 08:48 gabapentin Allergy Verified 07/03/16 08:48 gadobutrol [From Gadavist] Allergy Verified 07/03/16 08:48 ibuprofen Allergy Verified 07/03/16 08:48 meperidine [From Mepergan] Allergy Verified 07/03/16 08:48 metaxalone Allergy Verified 07/03/16 08:48 metformin Allergy Verified 07/03/16 08:48 milnacipran Allergy Verified 07/03/16 08:48 morphine Allergy Verified 10/30/14 13:33 naproxen Allergy Verified 07/03/16 08:48 penicillin G Allergy Verified 10/30/14 13:33 pioglitazone Allergy Verified 07/03/16 08:48 pramipexole Allergy Verified 07/03/16 08:48 pregabalin Allergy Verified 07/03/16 08:48 promethazine [From Mepergan] Allergy Verified 07/03/16 08:48 rosiglitazone Allergy Verified 07/03/16 08:48 sulindac Allergy Verified 07/03/16 08:48 valdecoxib Allergy Verified 07/03/16 08:48 exenatide AdvReac Verified 07/03/16 08:48 Home Medications: HOME MEDICATIONS levETIRAcetam [Keppra] 1,000 mg PO BID 10/30/14 [Last Taken Unknown] Diphenhydramine HCl [Diphenhist] 25 mg PO QID PRN 07/03/16 [Last Taken Unknown] Docusate Sodium [Doc-Q-Lace] 100 mg PO BID 07/03/16 [Last Taken Unknown] Gentamicin Sulfate [Gentamicin 0.3% Ophthalmic Solution] 1 drop OP QID 07/03/16 [Last Taken Unknown] HYDROcodone/ACETAMINOPHEN [Hydrocodon-Acetaminophn 10-325] 1 tab PO Q8H PRN 09/12 [Last Taken Unknown] Insulin Regular, Human [Humulin R] 50 unit SC TIDWM 07/03/16 [Last Taken Unknown ] Melatonin 3 mg PO DAILY 07/03/16 [Last Taken Unknown] Nitroglycerin [Nitrostat] 0.4 mg SL Q5MIN PRN 07/03/16 [Last Taken Unknown] Oxycodone HCl 5 mg PO Q4H 07/03/16 [Last Taken Unknown] - History of Present Illness Narrative: Patient arrives via EMS> She is living at the [facility]. This am she was noticed to be not responding normally. She has BS done that was in the 40s. Glucagon given band BS 103 but no change in her condition. She is unable to provide any history. She arrives with a DNR order signed 06/22/16. No other history available. Onset: other - unknown Context: other - no clear Hx of trauma - Character of Deficits Additional Deficits: Present: other - not responding normally Associated Symptoms: Reports: unresponsive Prior Treament: Denies: recently seen Review of Systems - Narrative Narrative: unable to obtain ROS d/t unresponsiveness - Patient's Past Medical History Patient History - Medical: Diabetes Type 2 Insulin Dependent Patient History - Cardiac/Respiratory: Other Patient History - Cancer: No Hx of Cancer - Social History Living Situations: assisted Alcohol Use: none Drug Use: none - Immunizations Immunizations Up to Date: Yes Physical Exam - Physical Exam General Appearance: Present: other - eyes open with some flailing movements intermittently. Does not repsond to commands. Eye Exam: Normal inspection: bilateral Ears, Nose, Throat: Present: other - Pupils 3 mm bilaterally, sluggish but this is a difficult exam given her movement. She has a gag reflex present. Will yell out at times, with no apparent painful stimulation.. Absent: pharyngeal erythema Neck: Present: other - trachea midline Respiratory: Present: normal breath sounds, other - Mild tachypnea Cardiovascular/Chest: Present: normal peripheral pulses, tachycardia Gastrointestinal/Abdominal: Present: normal bowel sounds, soft, other - no apparent tenderness Extremity Exam: Present: other - no deformity Neurological Exam: Present: other - Difficult neuro exam. her gag reflex is still intact. She will flail around and seems to move all extremities but miriam movement noted on cassidy right. No Seizure activity noted. Skin Exam: Absent: skin rash ED Progress - Results and Orders Patient's Lab Results:: I have reviewed the patient's lab results. - Vital Signs Patient's Vital Signs:: I have reviewed the patient's vital signs. Vital Signs: Vital Signs 07/03/16 07/03/16 08:22 09:01 Temperature 35.7 C L Pulse Rate 109 H 105 H Respiratory 18 17 Rate Blood Pressure 180/101 182/154 O2 Sat by Pulse 100 100 Oximetry - EKG EKG read: Interp. by me EKG Comments: Sinus tachycardia. Non-specific ST/T wave changes, no STEMI. - X-Ray X-Ray #1 X-Ray: chest Interpretation: Interp. by me X-ray Comments: No radiology reading yet. Rotated. Possible pulmonary vascular congestion - CT/Ultrasound CT/Ultrasound Narrative: CT report called to me by the radiologist - Progress/Reassessment Chief Complaint: Altered Mental Status Progress Note-Subjective: 07/03/16 09:30 here. I discussed the head CT with him and we discussed her prior wishes at length and her signed DNR. He is in agreement with her DNR and that she would not want invasive or aggressive treatment and would not want to be intubated or transferred. He is in agreement with her DNR and would like observation and comfort measures at this point. At this time I will comply with her recently signed DNR and the request of her for comfort care and observation here. I spoke with the hospitalist here and she will be admitted here. Departure Clinical Impression: ICH (intracerebral hemorrhage), Mental status change - Departure Disposition: [facility] Condition: Serious Referrals: Brant Henley MD [Primary Care Provider] -
[2016-07-03] MEDS: NORMAL SALINE 1,000 ML IV ONE ×2 (10:11→10:31)
[2016-07-03] MEDS ORDERED: ONDANSETRON HCL/PF 2 MG/ML VIAL IV PRN (10:24)
[2016-07-03] MEDS ORDERED: PROCHLORPERAZINE EDISYLATE 5 MG/ML VIAL IV PRN (10:24)
[2016-07-03] MEDS ORDERED: DEXTROSE 50%-WATER 50 ML SYRG IV ONE (10:53)
[2016-07-03] MEDS ORDERED: DEXTROSE 50%-WATER 50 ML SYRG ONE (10:54)
[2016-07-03] MEDS ORDERED: WATER IV SCH ×2 (11:30)
[2016-07-03] MEDS ORDERED: DEXTROSE 10% IV SCH ×2 (11:30)
[2016-07-03] MEDS ORDERED: SODIUM CHLORIDE IV SCH ×2 (11:30)
[2016-07-03] MEDS: WATER IV SCH ×4 (11:52→20:21)
[2016-07-03] MEDS: DEXTROSE 10% IV SCH ×4 (11:52→20:21)
[2016-07-03] MEDS: SODIUM CHLORIDE IV SCH ×4 (11:52→20:21)
--- NOTE | 2016-07-03 12:23 | HP ---
<Mey Kumar - Last Filed: 07/03/16 12:10> Chief Complaint - Chief Complaint Date of Service: 07/03/16 Time of Service: 10:01 Chief Complaint: new intracranial hemorrhage, comfort care measure History of Present Illness: Miriam is a 60 year old female with a history of a previous cerebellar hemorrhage who was found in her room at the care center non responsive with a critically low glucose. The care center gave 2 doses of glucagon with no change in mentation, thus ended up calling EMS. In the ER, CT scan revealed a new intracranial hemorrhage. patient is still non-responsive. Patient's has requested no aggressive measures be taken and denied transfer to [facility]. ER physican spoke with and comfort measures were agreed upon. This was again confirmed by myself. request DNR, comfort measures only. Patient will be admitted to the unit for comfort care and hospice consultation. - Patient's Past Medical History Patient History - Medical: Arthritis, Diabetes Type 2 Insulin Dependent, Fibromyalgia, Obesity Patient History - Cardiac/Respiratory: CHF, Pneumonia, Sleep Apnea Patient History - Cancer: No Hx of Cancer Patient History - Surgical Procedures: Cholecystectomy, Patient History - Other: None LMP (females 10-50): Menopausal - Family History Mother Family History - Medical: , History Unknown Family History - Cardiac/Respiratory: History Unknown Family History - Cancer: History Unknown Father Family History - Medical: History Unknown Family History - Cardiac/Respiratory: History Unknown Family History - Cancer: History Unknown - Social History Living Situations: alf Abuse History: No History of abuse Psych History: No pertinent hx Smoking Status: Never smoker Have you smoked in the past 12 months: No Alcohol Use: none Drug Use: none - Immunizations Immunizations Up to Date: Yes Review Of Systems (GEN) - Review of Systems Additional Comments: unable to obtain due to patient condition. Immunizations: IMMUNIZATION HX Immunizations Up to Date Yes Allergies/Adverse Reactions: Allergies Allergy/AdvReac Type Severity Reaction Status Date / Time amitriptyline Allergy Verified 07/03/16 08:48 amoxicillin Allergy Verified 07/03/16 08:48 blue dye Allergy Verified 07/03/16 08:48 clonazepam [From Klonopin] Allergy Verified 07/03/16 08:48 coffee (Coffea arabica) Allergy Verified 07/03/16 08:48 duloxetine Allergy Verified 07/03/16 08:48 gabapentin Allergy Verified 07/03/16 08:48 gadobutrol [From Gadavist] Allergy Verified 07/03/16 08:48 ibuprofen Allergy Verified 07/03/16 08:48 meperidine [From Mepergan] Allergy Verified 07/03/16 08:48 metaxalone Allergy Verified 07/03/16 08:48 metformin Allergy Verified 07/03/16 08:48 milnacipran Allergy Verified 07/03/16 08:48 morphine Allergy Verified 10/30/14 13:33 naproxen Allergy Verified 07/03/16 08:48 penicillin G Allergy Verified 10/30/14 13:33 pioglitazone Allergy Verified 07/03/16 08:48 pramipexole Allergy Verified 07/03/16 08:48 pregabalin Allergy Verified 07/03/16 08:48 promethazine [From Mepergan] Allergy Verified 07/03/16 08:48 rosiglitazone Allergy Verified 07/03/16 08:48 sulindac Allergy Verified 07/03/16 08:48 valdecoxib Allergy Verified 07/03/16 08:48 exenatide AdvReac Verified 07/03/16 08:48 Home Medications: HOME MEDICATIONS levETIRAcetam [Keppra] 1,000 mg PO BID 10/30/14 [Last Taken Unknown] Diphenhydramine HCl [Diphenhist] 25 mg PO QID PRN 07/03/16 [Last Taken Unknown] Docusate Sodium [Doc-Q-Lace] 100 mg PO BID 07/03/16 [Last Taken Unknown] Gentamicin Sulfate [Gentamicin 0.3% Ophthalmic Solution] 1 drop OP QID PRN 07/03 [Last Taken Unknown] HYDROcodone/ACETAMINOPHEN [Hydrocodon-Acetaminophn 10-325] 1 tab PO Q8H PRN 09/12 [Last Taken Unknown] Insulin Regular, Human [Humulin R] 50 unit SC TIDWM 07/03/16 [Last Taken Unknown ] Melatonin 3 mg PO HS 07/03/16 [Last Taken Unknown] Nitroglycerin [Nitrostat] 0.4 mg SL Q5MIN PRN 07/03/16 [Last Taken Unknown] Oxycodone HCl 10 mg PO Q4H PRN 07/03/16 [Last Taken Unknown] Exam - Exam Vital Signs: Vital Signs - Last Taken Temp 36.7 C 07/03/16 09:45 Pulse 102 H 07/03/16 11:23 Resp 20 07/03/16 11:23 BP 139/96 07/03/16 11:23 Pulse Ox 100 07/03/16 09:45 Constitutional: Present: Severe distress - pt in bed, grunting, failing arms, Elderly, Looks Older than stated age Neck: Present: supple Breasts: Present: Exam deferred Respiratory: Present: lungs clear, respiratory distress, other - agonal respirations with grunting Cardiovascular/Chest: Present: normal peripheral pulses, regular rate, rhythm Abdomen: Present: soft, nondistended /Rectal: Present: Exam deferred Extremity: Present: normal inspection, no pedal edema Skin Exam: Present: normal color, no cyanosis Diagnostic Studies: Laboratory Results WBC 19.4 K/mm3 (4.0-10.5) H 07/03/16 09:04 RBC 4.49 M/mm3 (4.2-5.4) 07/03/16 09:04 Hgb 13.4 gm/dL (12.5-16.0) 07/03/16 09:04 Hct 38.7 % (37.0-47.0) 07/03/16 09:04 MCV 86.2 fl (78-100) 07/03/16 09:04 MCH 29.8 pg (27-31) 07/03/16 09:04 MCHC 34.6 g/dl (32-36) 07/03/16 09:04 RDW 11.7 % (11.5-14.0) 07/03/16 09:04 Plt Count 284 K/mm3 (150-450) 07/03/16 09:04 MPV 8.3 fl (6.0-9.5) 07/03/16 09:04 Immature Gran % (Auto) 0.40 % (0.001-0.429) 07/03/16 09:04 Immature Gran # (Auto) 0.07 K/mm3 (0.000-0.0310) H 07/03/16 09:04 Neutrophils % 92.2 % (42-75.0) H 07/03/16 09:04 Lymphocytes % 4.7 % (20-51) L 07/03/16 09:04 Monocytes % 2.6 % (0.0-9) 07/03/16 09:04 Eosinophils % 0.0 % (0.0-3.0) 07/03/16 09:04 Basophils % 0.1 % (0.0-1.0) 07/03/16 09:04 Nucleated RBC % 0.0 k/mm3 (0-1) 07/03/16 09:04 Neutrophils # 17.9 K/mm3 (1.3-6.0) H 07/03/16 09:04 Lymphocytes # 0.9 k/mm3 (1.5-3.5) L 07/03/16 09:04 Monocytes # 0.5 k/mm3 (0.0-1.0) 07/03/16 09:04 Eosinophils # 0.0 k/mm3 (0.0-0.7) 07/03/16 09:04 Absolute Basophils 0.0 k/mm3 (0.0-0.1) 07/03/16 09:04 PT 10.6 Seconds (9.4-11.4) 07/03/16 09:04 INR (Anticoag Therapy) 1.02 INR (0.90-1.10) 07/03/16 09:04 Sodium 144 mmol/L (132-142) H 07/03/16 09:04 Plasma Sodium 144 mmol/L (130-142) H 07/03/16 09:04 Potassium 3.9 mmol/L (3.4-4.6) 07/03/16 09:04 Chloride 104 mmol/L (97-106) 07/03/16 09:04 Carbon Dioxide 28.3 mmol/L (24-32.6) 07/03/16 09:04 Anion Gap 15.6 mmol/L (6.8-13.8) H 07/03/16 09:04 BUN 12 mg/dL (3-23) 07/03/16 09:04 Creatinine 0.64 mg/dL (0.4-1.4) 07/03/16 09:04 Est GFR (Non-Af Amer) 100 mL/min (60-130) D 07/03/16 09:04 BUN/Creatinine Ratio 18.8 (9.0-21.6) 07/03/16 09:04 Random Glucose 109 mg/dL (70-110) 07/03/16 11:03 Calcium 9.2 mg/dL (7.9-10.9) 07/03/16 09:04 Calcium Adj for Albumin 9.2 mg/dL (8.4-10.2) 07/03/16 09:04 Total Bilirubin 0.3 mg/dL (0.0-1.1) 07/03/16 09:04 AST 22 U/L (0-48) 07/03/16 09:04 ALT 27 U/L (19-67) 07/03/16 09:04 Alkaline Phosphatase 107 U/L (50-170) 07/03/16 09:04 Troponin I Less than 0.017 ng/ml (0.00-0.10) 07/03/16 09:04 Total Protein 7.5 gm/dL (6.2-8.2) 07/03/16 09:04 Albumin 3.6 gm/dl (3.4-5.0) 07/03/16 09:04 Urine Color Yellow 07/03/16 09:19 Urine Appearance Clear 07/03/16 09:19 Urine pH 6.0 pH (5.0-7.0) 07/03/16 09:19 Ur Specific Mutual 1.025 SP.GR. (1.005-1.010) 07/03/16 09:19 Urine Protein Negative mg/dL (NEGATIVE) 07/03/16 09:19 Urine Glucose (UA) 100 mg/dL (NEGATIVE) H 07/03/16 09:19 Urine Ketones Negative mg/dL (NEGATIVE) 07/03/16 09:19 Urine Blood Negative /ul (NEGATIVE) 07/03/16 09:19 Urine Nitrate Negative (NEGATIVE) 07/03/16 09:19 Urine Bilirubin Negative mg/dl (NEGATIVE) 07/03/16 09:19 Urine Urobilinogen Normal EU/dl (NORMAL) 07/03/16 09:19 Ur Leukocyte Esterase Negative /ul (NEGATIVE) 07/03/16 09:19 Urine RBC None seen /hpf (0-5) 07/03/16 09:19 Urine WBC 0-5 /hpf (0-5) 07/03/16 09:19 Ur Epithelial Cells 0-5 /hpf (0-5) 07/03/16 09:19 Urine Bacteria Trace (NONE) 07/03/16 09:19 Urine Culture Comments Culture to follow 07/03/16 09:19 Assessment/Plan - Narrative Narrative: Intracranial hemorrhage - wishes for no aggressive measures - admit for comfort care only - consult hospice in the am. Code status: DNR, comfort care status VTE: not appropriate gi proph: not appropriate - Assessment/Plan (1) Hospice care patient Problem: Acute (2) ICH (intracerebral hemorrhage) Problem: Acute QualifierTitle: Intracerebral hemorrhage etiology: nontraumatic Cerebral hemorrhage location: cerebral hemisphere, unspecified portion Laterality: unspecified laterality Qualified Code(s): I61.2 - Nontraumatic intracerebral hemorrhage in hemisphere, unspecified (3) Mental status change Problem: Acute QualifierTitle: Altered mental status type: unspecified Qualified Code(s) : R41.82 - Altered mental status, unspecified <Brant Henley - Last Filed: 07/03/16 12:39> Immunizations: IMMUNIZATION HX Immunizations Up to Date Yes Exam - Exam Vital Signs: Vital Signs - Last Taken Temp 36.7 C 07/03/16 09:45 Pulse 102 H 07/03/16 11:23 Resp 20 07/03/16 11:23 BP 139/96 07/03/16 11:23 Pulse Ox 100 07/03/16 09:45 Diagnostic Studies: Laboratory Results WBC 19.4 K/mm3 (4.0-10.5) H 07/03/16 09:04 RBC 4.49 M/mm3 (4.2-5.4) 07/03/16 09:04 Hgb 13.4 gm/dL (12.5-16.0) 07/03/16 09:04 Hct 38.7 % (37.0-47.0) 07/03/16 09:04 MCV 86.2 fl (78-100) 07/03/16 09:04 MCH 29.8 pg (27-31) 07/03/16 09:04 MCHC 34.6 g/dl (32-36) 07/03/16 09:04 RDW 11.7 % (11.5-14.0) 07/03/16 09:04 Plt Count 284 K/mm3 (150-450) 07/03/16 09:04 MPV 8.3 fl (6.0-9.5) 07/03/16 09:04 Immature Gran % (Auto) 0.40 % (0.001-0.429) 07/03/16 09:04 Immature Gran # (Auto) 0.07 K/mm3 (0.000-0.0310) H 07/03/16 09:04 Neutrophils % 92.2 % (42-75.0) H 07/03/16 09:04 Lymphocytes % 4.7 % (20-51) L 07/03/16 09:04 Monocytes % 2.6 % (0.0-9) 07/03/16 09:04 Eosinophils % 0.0 % (0.0-3.0) 07/03/16 09:04 Basophils % 0.1 % (0.0-1.0) 07/03/16 09:04 Nucleated RBC % 0.0 k/mm3 (0-1) 07/03/16 09:04 Neutrophils # 17.9 K/mm3 (1.3-6.0) H 07/03/16 09:04 Lymphocytes # 0.9 k/mm3 (1.5-3.5) L 07/03/16 09:04 Monocytes # 0.5 k/mm3 (0.0-1.0) 07/03/16 09:04 Eosinophils # 0.0 k/mm3 (0.0-0.7) 07/03/16 09:04 Absolute Basophils 0.0 k/mm3 (0.0-0.1) 07/03/16 09:04 PT 10.6 Seconds (9.4-11.4) 07/03/16 09:04 INR (Anticoag Therapy) 1.02 INR (0.90-1.10) 07/03/16 09:04 Sodium 144 mmol/L (132-142) H 07/03/16 09:04 Plasma Sodium 144 mmol/L (130-142) H 07/03/16 09:04 Potassium 3.9 mmol/L (3.4-4.6) 07/03/16 09:04 Chloride 104 mmol/L (97-106) 07/03/16 09:04 Carbon Dioxide 28.3 mmol/L (24-32.6) 07/03/16 09:04 Anion Gap 15.6 mmol/L (6.8-13.8) H 07/03/16 09:04 BUN 12 mg/dL (3-23) 07/03/16 09:04 Creatinine 0.64 mg/dL (0.4-1.4) 07/03/16 09:04 Est GFR (Non-Af Amer) 100 mL/min (60-130) D 07/03/16 09:04 BUN/Creatinine Ratio 18.8 (9.0-21.6) 07/03/16 09:04 Random Glucose 109 mg/dL (70-110) 07/03/16 11:03 Calcium 9.2 mg/dL (7.9-10.9) 07/03/16 09:04 Calcium Adj for Albumin 9.2 mg/dL (8.4-10.2) 07/03/16 09:04 Total Bilirubin 0.3 mg/dL (0.0-1.1) 07/03/16 09:04 AST 22 U/L (0-48) 07/03/16 09:04 ALT 27 U/L (19-67) 07/03/16 09:04 Alkaline Phosphatase 107 U/L (50-170) 07/03/16 09:04 Troponin I Less than 0.017 ng/ml (0.00-0.10) 07/03/16 09:04 Total Protein 7.5 gm/dL (6.2-8.2) 07/03/16 09:04 Albumin 3.6 gm/dl (3.4-5.0) 07/03/16 09:04 Urine Color Yellow 07/03/16 09:19 Urine Appearance Clear 07/03/16 09:19 Urine pH 6.0 pH (5.0-7.0) 07/03/16 09:19 Ur Specific Mutual 1.025 SP.GR. (1.005-1.010) 07/03/16 09:19 Urine Protein Negative mg/dL (NEGATIVE) 07/03/16 09:19 Urine Glucose (UA) 100 mg/dL (NEGATIVE) H 07/03/16 09:19 Urine Ketones Negative mg/dL (NEGATIVE) 07/03/16 09:19 Urine Blood Negative /ul (NEGATIVE) 07/03/16 09:19 Urine Nitrate Negative (NEGATIVE) 07/03/16 09:19 Urine Bilirubin Negative mg/dl (NEGATIVE) 07/03/16 09:19 Urine Urobilinogen Normal EU/dl (NORMAL) 07/03/16 09:19 Ur Leukocyte Esterase Negative /ul (NEGATIVE) 07/03/16 09:19 Urine RBC None seen /hpf (0-5) 07/03/16 09:19 Urine WBC 0-5 /hpf (0-5) 07/03/16 09:19 Ur Epithelial Cells 0-5 /hpf (0-5) 07/03/16 09:19 Urine Bacteria Trace (NONE) 07/03/16 09:19 Urine Culture Comments Culture to follow 07/03/16 09:19 Assessment/Plan - Narrative Narrative: I reviewed the record, intracerebral hemorrhage, terminal prognosis. Plan is comfort care. I directly supervised all of our nurse practitioner hospitalist' s care for this patient.
[2016-07-03] MEDS: HYDROmorphone HCL 2 MG/ML VIAL IV PRN ×4 (12:24→22:18)
[2016-07-03] MEDS: ATROPINE SULFATE 150 DROP BTL SL PRN (14:27)
[2016-07-03] MEDS: POLYVINYL ALCOHOL 150 DROP BTL EACHEYE PRN (14:28)
[2016-07-03] MEDS: LORazepam 2 MG/ML DISP.SYRIN IV PRN ×3 (18:11→22:21)
--- NOTE | 2016-07-04 00:49 | PN ---
<Marcela Jones - Last Filed: 07/04/16 01:39> Progess Note - Interim Narrative: 07/04/16 00:26 I was notified by nursing about pt's son ( Freddie Urbina) demanding to know why pt is not being aggressively treated. Pt's Elijah and Freddie were at bedside. I explained to him that [facility], a head CT done at ED had revealed a new Brain Bleed/hemorrhaging on the LT occipital and Parietal lobe. I explained that change of goals of care to comfort cares has been discussed with his Father by the provider, and he ( Elijah), opted not to escalate treatment to the [facility] due high risks involved with the surgical intervention. Freddie wanted to know why it would not be possible to do anything to treat her mother. I informed him that while surgical intervention to evacuate the bleeding exist, it will highly unlikely contribute to an improved outcome and neurological dysfunction would persist. I discussed with him that there is no evidence that suggests that surgical evacuation of bleeding improves outcome/functional status and neither early removal. He verbalized the understanding stating that he had not realized the grave situation his mother was in, and father could not explain clearly to him and [place]. Elijah states that pt had a previous brain bleed in 2014 which was not bad, but pt refused to pursue surgery after being explained for the risk and benefits of the procedure. She opted to 'enjoy her life till she .' She had been doing well until 10 days ago when she fell and had been taken to the [facility]. She was discharged to the [facility] on .Freddie stated he was agreeable to the plan of comfort cares. Emotional support given to him and he was thankful for clarification of information. <Brant Henley - Last Filed: 07/04/16 11:57> Progess Note - Interim Narrative: 07/04/16 11:56 I agree with the approach our nurse practitioner used and directly supervised her care of the patient and the patient's family.
[2016-07-04] MEDS: HYDROPHILIC OINTMENT 454 APPL JAR TP SCH ×3 (00:56→20:16)
[2016-07-04] MEDS: ATROPINE SULFATE 150 DROP BTL SL PRN (00:58)
[2016-07-04] MEDS: HYDROmorphone HCL 2 MG/ML VIAL IV PRN ×9 (01:02→20:19)
[2016-07-04] MEDS: LORazepam 2 MG/ML DISP.SYRIN IV PRN ×4 (01:05→10:01)
[2016-07-04] MEDS: POLYVINYL ALCOHOL 150 DROP BTL EACHEYE PRN (03:49)
[2016-07-04] MEDS: WATER IV SCH ×2 (03:54)
[2016-07-04] MEDS: SODIUM CHLORIDE IV SCH ×2 (03:54)
[2016-07-04] MEDS: DEXTROSE 10% IV SCH ×2 (03:54)
[2016-07-04] MEDS ORDERED: NYSTATIN 15 APPL BTL TP PRN (10:20)
[2016-07-04] MEDS ORDERED: LORazepam 2 MG/ML DISP.SYRIN IV PRN (11:09)
[2016-07-04] MEDS: NYSTATIN 15 APPL BTL TP SCH ×2 (11:21→20:16)
[2016-07-04] MEDS ORDERED: fentaNYL 50 MCG PATCH.TD72 TD SCH (11:30)
--- NOTE | 2016-07-04 13:59 | PN ---
Progess Note - Interim Narrative: 07/04/16 13:57 spoke with family this am. update them on plan of care. fentayl patch added for comfort. family in agreement for patch. just spoke with case elmer. pt is getting restless and moaning before 3 hours between hours ativan doses which had been keeping her comfortable overnight. ordered entered for ativan iv every 2 hours scheduled.
[2016-07-04] MEDS: LORazepam 2 MG/ML DISP.SYRIN IV SCH ×4 (14:43→20:16)
[2016-07-04 15:36] VITALS: BP 146/78
--- NOTE | 2016-07-04 20:54 | PN ---
Progess Note - Interim Narrative: 07/04/16 20:53 1/2 hour discussion with spouse and a daughter. We will be flexible and permissive with terminal cares.
[2016-07-04] MEDS ORDERED: POTASSIUM CHLORIDE 20 MEQ in DEXTROSE 5%-NORMAL SALINE 990 ML IV SCH (21:00)
--- NOTE | 2016-07-05 01:19 | DS ---
<Marcela Jones - Last Filed: 07/05/16 01:49> Discharge Summary - Provider Primary Care Provider: Brant Henley Admitting Clinician: Brant Henley Attending Physician on Admission: Marcela Jones Pronouncing Clinician: Marcela Jones - Diagnosis/Cause of (1) ICH (intracerebral hemorrhage) Problems: Acute - Summary Details (narrative): Pt admitted on 07/03/16 after being found unresponsive at the [facility]. A head CT done at ED showed she had a new hemorrhaging on the LT occipital and Parietal lobe. Elijah, chose not to escalate treatment to the [facility] given the fact that there would be no better outcome with the pt and possibility that the pt would not return to a functional status neurologically. Pt was admitted with the goal of comfort measures. On 07/04/16, she peacefully passed. T.O.D 21.04. was expected. Family present at bedside. Procedures Performed: none - Additional Data Confirmation of as documented by pronouncing clinician: no pulse, no respirations, no heart sounds, pupils fixed and dilated Family: at bedside Attending/PCP notified: Yes Was code activated: No Autopsy requested: No Radioisotope Production Operator notified: No Organ Bank notified: Yes Hospice patient: No <Brant Henley - Last Filed: 07/05/16 17:20> Discharge Summary - Summary Details (narrative): I had spoken with the patient's spouse and one of her children at some length prior to the patient's . The patient was comfortable surrounding the time of her . Family's questions were answered. I personally directed all of our family practitioner hospitalist's care for this patient.
== END 2016-07-04 21:04 | disposition expired | DRG 66 ==
LOC: ER 08:17 → MS 09:21 → OBSVTOIN 07-04 15:09
PROVIDERS: ADMIT Internal Medicine; ATTEND Allergy & Immunology
PROC: 0T9B70Z Drainage of Bladder with Drainage Device, Via Natural or Artificial Opening (ICD-10-PCS; principal; 2016-07-03)
DX: I61.2 Nontraumatic intracerebral hemorrhage in hemisphere, unspecified (principal); R40.4 Transient alteration of awareness; Z51.5 Encounter for palliative care; E11.9 Type 2 diabetes mellitus without complications; R06.09 Other forms of dyspnea; Z79.4 Long term (current) use of insulin; Z87.01 Personal history of pneumonia (recurrent); Z88.1 Allergy status to other antibiotic agents; Z88.8 Allergy status to other drugs, medicaments and biological substances; Z91.018 Allergy to other foods; Z91.048 Other nonmedicinal substance allergy status